=== PATIENT | female | born 1975 | race Caucasian/White ===

== ENCOUNTER 2017-04-23 16:35 | Inpatient (IN) | payer OTHER ==
[2017-04-23 16:43] VITALS: BMI 24.0
[2017-04-23] MEDS ORDERED: HYDROmorphone HCL CARPU-JECT 1 MG/1 ML DISP.SYRIN IVPB ONE (17:04)
[2017-04-23] MEDS ORDERED: HYDROmorphone HCL CARPU-JECT 1 MG/1 ML DISP.SYRIN ONE ×2 (17:10→23:10)
[2017-04-23 17:23] LABS: BASOPHIL 0.5 % (0-2.0); EOSINOPHIL 0.7 % (0-4.5); MCH 29.8 pg (25.7-33.7); MCHC 33.5 g/dl (32.0-36.0); MEAN CELL VOLUME 89.2 fl (80-96); MEAN PLT VOLUME 9.5 fl (7.5-11.1); NEUTROPHILS 79.2 % (42.8-82.8); PLATELET COUNT 206 K/MM3 (134-434); RDW 13.8 % (11.6-15.6); WHITE BLOOD COUNT 11.1 K/mm3 (4.0-10.0)
[2017-04-23] MEDS ORDERED: MIDAZOLAM HCL 5 MG/1 ML Single Dose Vial IVPUSH ONE (17:44)
[2017-04-23 18:10] LABS: ALBUMIN 3.6 g/dl (3.4-5.0); ALK PHOS 54 U/L (45-117); ANION GAP 12 (8-16); BILIRUBIN,TOTAL 1.6 mg/dL (0.2-1.0); CALCIUM 8.7 mg/dL (8.5-10.1); CO2 23 mmol/L (21-32); COCKROFT - GAULT 93.1515; CREATININE 0.7 mg/dL (0.55-1.02); GLUCOSE,RANDOM 107 mg/dL (74-106); SGOT/AST 121 U/L (15-37); SGPT/ALT 170 U/L (12-78); TOT PROT 6.5 g/dl (6.4-8.2)
--- NOTE | 2017-04-23 18:30 | PDOC ---
History of Present Illness - History of Present Illness Initial Comments: 04/23/17 18:30 Patient is a 41 year old female with significant medical hx of cholecystitis who is presenting to the ED after discharge from [facility] for continuing symptoms of cholecystitis. Patient has been having symptoms for four days with severe RUQ pain that radiates around to her upper back. She reports multiple episodes of nausea and vomiting since onset of her pain but denies any fever or chills. The patient also endorses an itchy rash to her neck that started after she was given a medication at [facility] today. Patient cannot remember the name of the medication given, however she notes that she received an US and was given medications for her vomiting and pain. The patient was not discharged on any medications. Denies fever, chills, chest pain, shortness of breath, headache, or weakness. <Devi Seay - Last Filed: 04/23/17 19:09> <Ewa Purcell - Last Filed: 04/23/17 23:28> - General Chief Complaint: Pain Stated Complaint: ABD PAIN Time Seen by Provider: 04/23/17 16:48 Past History <Devi Seay - Last Filed: 04/23/17 19:09> - Past Medical History Other medical history: GALL BLADDER - Psycho/Social/Smoking Cessation Hx Anxiety: No Suicidal Ideation: No Smoking History: Never smoked Hx Alcohol Use: No Drug/Substance Use Hx: No Substance Use Type: None <Ewa Purcell - Last Filed: 04/23/17 23:28> - Past Medical History Allergies/Adverse Reactions: Allergies Allergy/AdvReac Type Severity Reaction Status Date / Time No Known Allergies Allergy Verified 04/23/17 16:42 Home Medications: Ambulatory Orders NK [No Known Home Medication] 04/23/17 Review of Systems - Review of Systems Comments:: 04/23/17 18:32 CONSTITUTIONAL: Absent: fever, chills, diaphoresis, generalized weakness, malaise, loss of appetite HEENT: Absent: rhinorrhea, nasal congestion, throat pain, throat swelling, difficulty swallowing, mouth swelling, ear pain, eye pain, visual changes CARDIOVASCULAR: Absent: chest pain, syncope, palpitations, irregular heart rate, lightheadedness , peripheral edema RESPIRATORY: Absent: cough, shortness of breath, dyspnea with exertion, orthopnea, wheezing, stridor, hemoptysis GASTROINTESTINAL: Present: abdominal pain, nausea, vomiting Absent: abdominal distension, diarrhea, constipation, melena, hematochezia GENITOURINARY: Absent: dysuria, frequency, urgency, hesitancy, hematuria, flank pain, genital pain MUSCULOSKELETAL: Absent: myalgia, arthralgia, joint swelling SKIN: Present: rash Absent: itching, pallor HEMATOLOGIC/IMMUNOLOGIC: Absent: easy bleeding, easy bruising, lymphadenopathy, frequent infections ENDOCRINE: Absent: unexplained weight gain, unexplained weight loss, heat intolerance, cold intolerance NEUROLOGIC: Absent: headache, focal weakness or paresthesia, dizziness, unsteady gait, seizure, mental status changes, bladder or bowel incontinence. PSYCHIATRIC: Absent: anxiety, depression, suicidal or homicidal ideation, hallucinations <Devi Seay - Last Filed: 04/23/17 19:09> *Physical Exam - Vital Signs Last Vital Signs Temp Pulse Resp BP Pulse Ox 98.0 F 75 18 152/92 100 04/23/17 16:38 04/23/17 16:38 04/23/17 16:38 04/23/17 16:38 04/23/17 16:38 - Physical Exam Comments: 04/23/17 18:35GENERAL: Well developed, well nourished. Awake and alert. Moderate distress. HEENT: Normocephalic, atraumatic. PERRLA, EOMI. No conjunctival pallor. Sclera are non- icteric. Moist mucous membranes. Oropharynx is clear. NECK: Supple. Full ROM. No JVD. Carotid pulses 2+ and symmetric, without bruits. No thyromegaly. No lymphadenopathy. CARDIOVASCULAR: Regular rate and rhythm. No murmurs, rubs, or gallops. Distal pulses are 2+ and symmetric. PULMONARY: No evidence of respiratory distress. Lungs clear to auscultation bilaterally. No wheezing, rales or rhonchi. ABDOMINAL: Soft. RUQ tenderness. Non-distended. No rebound or guarding. No organomegaly. Normoactive bowel sounds. MUSCULOSKELETAL: Upper back tenderness. Normal range of motion at all joints. No bony deformities. EXTREMITIES: No cyanosis. No clubbing. No edema. No calf tenderness. SKIN: Itchy rash upper neck. Warm and dry. Normal capillary refill. No jaundice. NEUROLOGICAL: Alert, awake, appropriate. Cranial nerves 2-12 intact. Normal speech. Toes are down-going bilaterally. Gait is normal without ataxia. PSYCHIATRIC: Cooperative. Good eye contact. Appropriate mood and affect. <Devi Seay - Last Filed: 04/23/17 19:09> - Vital Signs Last Vital Signs Temp Pulse Resp BP Pulse Ox 98.0 F 75 18 152/92 100 04/23/17 16:38 04/23/17 16:38 04/23/17 16:38 04/23/17 16:38 04/23/17 16:38 <Ewa Purcell - Last Filed: 04/23/17 23:28> ED Treatment Course - LABORATORY CBC & Chemistry Diagram: 04/23/17 17:15 04/23/17 17:27 - ADDITIONAL ORDERS Additional order review: Laboratory Results 04/23/17 17:27 Sodium 142 Potassium 3.4 L Chloride 107 Carbon Dioxide 23 Anion Gap 12 BUN 5 L Creatinine 0.7 Creat Clearance w eGFR > 60 Random Glucose 107 H Calcium 8.7 Total Bilirubin 1.6 H AST 121 H ALT 170 H Alkaline Phosphatase 54 Total Protein 6.5 Albumin 3.6 Lipase 77 04/23/17 17:15 RBC 4.43 MCV 89.2 MCHC 33.5 RDW 13.8 MPV 9.5 Neutrophils % 79.2 Lymphocytes % 12.9 Monocytes % 6.7 Eosinophils % 0.7 Basophils % 0.5 - RADIOLOGY Radiograph Interpretation: 04/23/17 19:10 Chief Operator Hydroformer: ([email or web address]) Report Date: 04/23/2017 17:55:00 Report Status: Preliminary Begin of Report Content Referring Physician: Ewa Purcell Patient Name: Kimberly Connelly THIS IS A PRELIMINARY REPORT FROM IMAGING ENVIRONMENTAL SERVICES MANAGER EXAM: Ultrasound abdomen right upper quadrant IMAGES: 56 EXAM DATE AND TIME: 2017-04-23 17:55:39.0 REASON FOR EXAM: Rule out cholecystitis COMPARISON: None. FINDINGS: Distended gallbladder measuring 13.9 cm in length containing multiple small shadowing stones and sludge. The gallbladder wall is normal in thickness measuring 1.6 mm. There is no pericholecystic fluid. Presence or absence of a sonographic Roque's sign was not reported The common bile duct is upper limits of normal measuring 6 mm The liver is upper limits of normal size with normal contour and echogenicity. No intrahepatic biliary dilatation. No hepatic masses. The portal and hepatic veins are patent The pancreas, right kidney and visualized portions of the abdominal aorta and IVC are unremarkable THIS DOCUMENT HAS BEEN ELECTRONICALLY SIGNED Danis Farnsworth MD 04/23/2017 19:05 JOANNA Barone Please call Imaging Waterproof Material Folder [phone] ([phone] with questions. ===== End of Report Content - Medications Given in the ED: ED Medications Discontinued Medications Generic Name Dose Route Start Last Admin Trade Name Freq PRN Reason Stop Dose Admin Diphenhydramine HCl 25 mg 04/23/17 17:03 04/23/17 17:22 Benadryl Injection - IVPUSH 04/23/17 17:04 25 mg ONCE ONE Administration Hydromorphone HCl 0.5 mg 04/23/17 17:04 04/23/17 17:22 Dilaudid Injection - IVPB 04/23/17 17:05 0.5 mg ONCE ONE Administration <Devi Seay - Last Filed: 04/23/17 19:09> - LABORATORY CBC & Chemistry Diagram: 04/23/17 17:15 04/23/17 17:27 - ADDITIONAL ORDERS Additional order review: Laboratory Results 04/23/17 17:27 Sodium 142 Potassium 3.4 L Chloride 107 Carbon Dioxide 23 Anion Gap 12 BUN 5 L Creatinine 0.7 Creat Clearance w eGFR > 60 Random Glucose 107 H Calcium 8.7 Total Bilirubin 1.6 H AST 121 H ALT 170 H Alkaline Phosphatase 54 Total Protein 6.5 Albumin 3.6 Lipase 77 04/23/17 17:15 RBC 4.43 MCV 89.2 MCHC 33.5 RDW 13.8 MPV 9.5 Neutrophils % 79.2 Lymphocytes % 12.9 Monocytes % 6.7 Eosinophils % 0.7 Basophils % 0.5 - RADIOLOGY Radiology Studies Ordered: Category Date Time Status ABDOMEN US -LIMITED [US] Stat Ultrasound 04/23/17 17:17 Taken - Medications Given in the ED: ED Medications Discontinued Medications Generic Name Dose Route Start Last Admin Trade Name Gonzalez PRN Reason Stop Dose Admin Diphenhydramine HCl 25 mg 04/23/17 17:03 04/23/17 17:22 Benadryl Injection - IVPUSH 04/23/17 17:04 25 mg ONCE ONE Administration Hydromorphone HCl 0.5 mg 04/23/17 17:04 04/23/17 17:22 Dilaudid Injection - IVPB 04/23/17 17:05 0.5 mg ONCE ONE Administration <Ewa Purcell - Last Filed: 04/23/17 23:28> Medical Decision Making - Medical Decision Making 04/23/17 23:21 41 yo female with recent dischare from [facility] for cholecystitis -discharged with no medications -pt has intractible pain -labs showed elevated Tbili and LFT -US revealed multiple gallstones and sludge pt given antiemetics,IVF,antibiotics and pain meds. . Pt states this is her 4th episode and she is interested in having her GB removed IMP cholecystitis <Ewa Purcell - Last Filed: 04/23/17 23:28> *DC/Admit/Observation/Transfer - Attestations Scribe Attestion: 04/23/17 18:33 Documentation prepared by Devi Seay, acting as medical management specialist for Ewa Purcell MD. <Devi Seay - Last Filed: 04/23/17 19:09> - Discharge Dispostion Admit: Yes <Ewa Purcell - Last Filed: 04/23/17 23:28> Diagnosis at time of Disposition: Cholecystitis, Elevated liver enzymes - Referrals
[2017-04-23] MEDS ORDERED: POTASSIUM CHLORIDE TABS 20 MEQ TABLET.ER (FP) PO ONE (18:41)
[2017-04-23] MEDS ORDERED: POTASSIUM CHLORIDE TABS 10 MEQ TABLET.ER (FP) ONE (18:55)
[2017-04-23 19:13] LABS: URINE APPEARANCE CLEAR; URINE BILIRUBIN NEGATIVE (NEGATIVE); URINE BLOOD NEGATIVE (NEGATIVE); URINE COLOR YELLOW; URINE GLUCOSE (UA) NEGATIVE (NEGATIVE); URINE KETONE 1+ (NEGATIVE); URINE LEUK ESTERASE NEGATIVE (NEGATIVE); URINE NITRITE NEGATIVE (NEGATIVE); URINE PROTEIN NEGATIVE (NEGATIVE); URINE UROBILINOGEN 2.0 E.U/dl E.U./dl (0.2-1.0)
[2017-04-23] MEDS ORDERED: AMPICILLIN NA/SULBACTAM NA 1.5 GM in SODIUM CHLORIDE 100 ML IVPB ONE (21:17)
[2017-04-23] MEDS ORDERED: AMPICILLIN SODIUM 250 MG VIAL ONE (21:37)
[2017-04-23] MEDS ORDERED: AMPICILLIN SODIUM 1 GM VIAL ONE (21:37)
--- NOTE | 2017-04-23 21:47 | PN ---
<Yesenia Cervantes - Last Filed: 04/23/17 21:46> Teaching Attending Note Name of Resident: Harish Hearn ATTENDING PHYSICIAN STATEMENT I saw and evaluated the patient. I reviewed the resident's note and discussed the case with the resident. I agree with the resident's findings and plan as documented. SUBJECTIVE: OBJECTIVE: ASSESSMENT AND PLAN: <Nader Malave - Last Filed: 04/24/17 02:19> Teaching Attending Note ATTENDING PHYSICIAN STATEMENT I saw and evaluated the patient. I reviewed the resident's note and discussed the case with the resident. I agree with the resident's findings and plan as documented. SUBJECTIVE: The patient is a 41 year old female with a significant past medical history of cholecystitis, who presented with abdominal pain patient was recently discharged today from [facility] for acute cholecystitis states she was admitted there for 4 days for same symptoms and noted she received ultrasound but denied gallbladder being taken out. No fevers or chills. Reported one episode of vomiting earlier today. OBJECTIVE: Last Vital Signs 3 Temp Pulse Resp BP Pulse Ox 98 F 68 18 102/68 100 04/23/17 19:23 04/23/17 19:23 04/23/17 19:23 04/23/17 19:23 04/23/17 19:23 Physical Exam: GEN: NAD HEENT: NCAT, PERRL CARD: RRR, S1 S2 RESP: CTAB ABD: (+) Positive murphys sign. BWS x4 EXT: - CCE SKIN: (+) Red plain papular rash on neck. Labs: CBCD 3 WBC 11.1 K/mm3 (4.0-10.0) H 04/23/17 17:15 RBC 4.43 M/mm3 (3.60-5.2) 04/23/17 17:15 Hgb 13.2 GM/dL (10.7-15.3) 04/23/17 17:15 Hct 39.5 % (32.4-45.2) 04/23/17 17:15 MCV 89.2 fl (80-96) 04/23/17 17:15 MCHC 33.5 g/dl (32.0-36.0) 04/23/17 17:15 RDW 13.8 % (11.6-15.6) 04/23/17 17:15 Plt Count 206 K/MM3 (134-434) 04/23/17 17:15 MPV 9.5 fl (7.5-11.1) 04/23/17 17:15 CMP 3 Sodium 142 mmol/L (136-145) 04/23/17 17:27 Potassium 3.4 mmol/L (3.5-5.1) L 04/23/17 17:27 Chloride 107 mmol/L (98-107) 04/23/17 17:27 Carbon Dioxide 23 mmol/L (21-32) 04/23/17 17:27 Anion Gap 12 (8-16) 04/23/17 17:27 BUN 5 mg/dL (7-18) L 04/23/17 17:27 Creatinine 0.7 mg/dL (0.55-1.02) 04/23/17 17:27 Creat Clearance w eGFR > 60 (>60) 04/23/17 17:27 Calcium 8.7 mg/dL (8.5-10.1) 04/23/17 17:27 Total Bilirubin 1.6 mg/dL (0.2-1.0) H 04/23/17 17:27 AST 121 U/L (15-37) H 04/23/17 17:27 ALT 170 U/L (12-78) H 04/23/17 17:27 Alkaline Phosphatase 54 U/L (45-117) 04/23/17 17:27 Total Protein 6.5 g/dl (6.4-8.2) 04/23/17 17:27 Albumin 3.6 g/dl (3.4-5.0) 04/23/17 17:27 Imaging: EXAM: Ultrasound abdomen right upper quadrant IMAGES: 56 EXAM DATE AND TIME: 2017-04-23 17:55:39.0 REASON FOR EXAM: Rule out cholecystitis COMPARISON: None. FINDINGS: Distended gallbladder measuring 13.9 cm in length containing multiple small shadowing stones and sludge. The gallbladder wall is normal in thickness measuring 1.6 mm. There is no pericholecystic fluid. Presence or absence of a sonographic Roque's sign was not reported The common bile duct is upper limits of normal measuring 6 mm The liver is upper limits of normal size with normal contour and echogenicity. No intrahepatic biliary dilatation. No hepatic masses. The portal and hepatic veins are patent The pancreas, right kidney and visualized portions of the abdominal aorta and IVC are unremarkable THIS DOCUMENT HAS BEEN ELECTRONICALLY SIGNED Danis Farnsworth MD 2016 19:05 EST ASSESSMENT AND PLAN: Patient is a 41 year old female who presents with abdominal pain, found to have acute daphne 1. Acute cholecystitis - Hida Scan done at [facility]. Obtain records - NPO - IVF - Type and screen - Zofran for nausea - Pain control - Cbc and coags - Surgical consult - Continue with Zosyn 2. Hypokalemia - Replete - Check magnesium 3. Rash - most likely contact - Unknown ideology - Contact dermatitis 4. DVT PPX- low risk - Ambulate Admit to med surg. Documentation prepared by Nader Malave, acting as director global medical affairs for Dr. Yesenia Cervantes MD.
--- NOTE | 2017-04-23 22:29 | HP ---
CHIEF COMPLAINT: Abdominal Pain w/Nausea and Vomiting PCP: Dr. Corina Hernadez ([place], [place]) HISTORY OF PRESENT ILLNESS: 41 y/o F w/sig PMH of gastritis (on omeprazole) presents to the ER w/ c/o RUQ abd pain for the last 4 days. Pain is located in RUQ and radiates to back and is worse with food and rated at a 15/10 at its worst. Pain has been constant over last 4 days but is worsened with eating and after eating pt has been having nausea and non-bloody vomiting over the last 4 days after eating. She has not taken any NSAIDs recently. She has had this type of pain 4-5 times in the past but did not seek help and was relieved on its own. Pt was seen at [facility] on Monday and admitted for cholecystitis there and discharged this morning after tolerating liquid diet after receiving zofran. Pt had Ultrasound and HIDA scan there. She states US showed enlarged gallbladder and stones there and HIDA was "normal". She discharged with instructions to f/u with PCP and no surgery f/u. After being discharged this morning she went home and felt severe pain and came to [facility] approximately 1 hour after being discharged. She denies fevers, chills, chest pain, SOB, pain with urination, blood in urine, sick contacts. She does not have HIDA or ultrasound records with her. At [facility] pt developed a rash on her neck after receiving meds but pt cannot pinpoint which medication it was. No trouble with breathing or throat swelling. She states benadryl has been helping. Rash began before dye injection for HIDA. ER course was notable for: (1) Ultrasound, Unasyn (2) Pain control w/dilaudid (3) Versed, Benadryl Recent Travel: denies PAST MEDICAL HISTORY: gastritis, migraines PAST SURGICAL HISTORY: 2 c-sections Social History: Smoking: quit 7 years ago, smoked 1/2 ppd for 5-6 years Alcohol: social Drugs: denies Family History: non-contributory Allergies No Known Allergies Allergy (Verified 04/23/17 16:42) HOME MEDICATIONS: Home Medications Medication Instructions Recorded Omeprazole 04/23/17 REVIEW OF SYSTEMS CONSTITUTIONAL: Absent: fever, chills, diaphoresis HEENT: Absent: throat pain, throat swelling, difficulty swallowing, mouth swelling CARDIOVASCULAR: Absent: chest pain, lightheadedness, peripheral edema RESPIRATORY: Absent: shortness of breath, dyspnea with exertion, orthopnea, wheezing, stridor, hemoptysis GASTROINTESTINAL: +abd pain, nausea, vomiting, Absent: constipation, melena, hematochezia GENITOURINARY: Absent: dysuria, hematuria NEUROLOGIC: Absent: headache, dizziness, mental status changes PSYCHIATRIC: Absent: anxiety, depression, suicidal or homicidal ideation, hallucinations. Vital Signs Temperature 98 F 04/23/17 19:23 Pulse Rate 68 04/23/17 19:23 Respiratory Rate 18 04/23/17 19:23 Blood Pressure 102/68 04/23/17 19:23 O2 Sat by Pulse Oximetry (%) 100 04/23/17 19:23 PHYSICAL EXAMINATION GENERAL: Awake, alert, and fully oriented, in no acute distress. HEAD: Normal with no signs of trauma. EYES: extraocular movements intact, sclera anicteric, conjunctiva clear. No lid lag. EARS, NOSE, THROAT: Ears normal, nares patent, Moist mucous membranes. NECK: Normal range of motion, supple LUNGS: Breath sounds equal, clear to auscultation bilaterally. No wheezes, and no crackles. No accessory muscle use. HEART: Regular rate and rhythm, normal S1 and S2 without murmur, rub or gallop. ABDOMEN: +RUQ tenderness, +Roque's sign, +hyperactive bowel sounds, Soft, not distended, no guarding, no rebound, no masses. MUSCULOSKELETAL: Normal range of motion at all joints. No bony deformities or tenderness. EXTREMITIES: 2+ pulses, warm, well-perfused. No calf tenderness. No peripheral edema. +R CVA tenderness (may be due to RUQ pain) NEUROLOGICAL: Normal speech. gait not observed. PSYCHIATRIC: Cooperative. Good eye contact. Appropriate mood and affect. SKIN: Warm, dry, normal turgor, +Rash on neck CBCD WBC 11.1 K/mm3 (4.0-10.0) H 04/23/17 17:15 RBC 4.43 M/mm3 (3.60-5.2) 04/23/17 17:15 Hgb 13.2 GM/dL (10.7-15.3) 04/23/17 17:15 Hct 39.5 % (32.4-45.2) 04/23/17 17:15 MCV 89.2 fl (80-96) 04/23/17 17:15 MCHC 33.5 g/dl (32.0-36.0) 04/23/17 17:15 RDW 13.8 % (11.6-15.6) 04/23/17 17:15 Plt Count 206 K/MM3 (134-434) 04/23/17 17:15 MPV 9.5 fl (7.5-11.1) 04/23/17 17:15 CMP Sodium 142 mmol/L (136-145) 04/23/17 17:27 Potassium 3.4 mmol/L (3.5-5.1) L 04/23/17 17:27 Chloride 107 mmol/L (98-107) 04/23/17 17:27 Carbon Dioxide 23 mmol/L (21-32) 04/23/17 17:27 Anion Gap 12 (8-16) 04/23/17 17:27 BUN 5 mg/dL (7-18) L 04/23/17 17:27 Creatinine 0.7 mg/dL (0.55-1.02) 04/23/17 17:27 Creat Clearance w eGFR > 60 (>60) 04/23/17 17:27 Random Glucose 107 mg/dL (74-106) H 04/23/17 17:27 Calcium 8.7 mg/dL (8.5-10.1) 04/23/17 17:27 Total Bilirubin 1.6 mg/dL (0.2-1.0) H 04/23/17 17:27 AST 121 U/L (15-37) H 04/23/17 17:27 ALT 170 U/L (12-78) H 04/23/17 17:27 Alkaline Phosphatase 54 U/L (45-117) 04/23/17 17:27 Total Protein 6.5 g/dl (6.4-8.2) 04/23/17 17:27 Albumin 3.6 g/dl (3.4-5.0) 04/23/17 17:27 Urine Test Results Urine Color Yellow 04/23/17 19:00 Urine Appearance Clear 04/23/17 19:00 Urine pH 7.0 (5.0-8.0) 04/23/17 19:00 Ur Specific [place] 1.015 (1.005-1.025) 04/23/17 19:00 Urine Protein Negative (NEGATIVE) 04/23/17 19:00 Urine Glucose (UA) Negative (NEGATIVE) 04/23/17 19:00 Urine Ketones 1+ (NEGATIVE) H 04/23/17 19:00 Urine Blood Negative (NEGATIVE) 04/23/17 19:00 Urine Nitrite Negative (NEGATIVE) 04/23/17 19:00 Urine Bilirubin Negative (NEGATIVE) 04/23/17 19:00 Ur Leukocyte Esterase Negative (NEGATIVE) 04/23/17 19:00 Imaging: Ultrasound RUQ: Patient Name: Kimberly Connelly THIS IS A PRELIMINARY REPORT FROM IMAGING TRAINING COORDINATOR EXAM: Ultrasound abdomen right upper quadrant IMAGES: 56 EXAM DATE AND TIME: 2017-04-23 17:55:39.0 REASON FOR EXAM: Rule out cholecystitis COMPARISON: None. FINDINGS: Distended gallbladder measuring 13.9 cm in length containing multiple small shadowing stones and sludge. The gallbladder wall is normal in thickness measuring 1.6 mm. There is no pericholecystic fluid. Presence or absence of a sonographic Roque's sign was not reported The common bile duct is upper limits of normal measuring 6 mm The liver is upper limits of normal size with normal contour and echogenicity. No intrahepatic biliary dilatation. No hepatic masses. The portal and hepatic veins are patent The pancreas, right kidney and visualized portions of the abdominal aorta and IVC are unremarkable THIS DOCUMENT HAS BEEN ELECTRONICALLY SIGNED Danis Farnsworth MD 04/23/2017 19:05 JOANNA Barone Please call Imaging Thread Puller [phone] ([phone] with questions. ===== End of Report Content CXR: as per my read: No signs of acute pathology, no infiltrates noted, costophrenic angles sharp, no bony abnormalities. Active Medications Sodium Chloride (Normal Saline -) 1,000 mls @ 100 mls/hr IV ASDIR DI Last Admin: 04/23/17 23:19 Dose: 100 mls/hr Morphine Sulfate (Morphine Injection -) 2 mg IVPUSH Q4H PRN PRN Reason: PAIN Ondansetron HCl (Zofran Injection) 4 mg IVPUSH Q6H PRN PRN Reason: NAUSEA AND/OR VOMITING Pantoprazole Sodium (Protonix 40mg Ivpb (Pre-Docked)) 40 mg IVPB DAILY DI ASSESSMENT/PLAN: 41 y/o F w/sig PMH of gastritis presents to ER with c/o RUQ pain w/Nausea and vomiting 1 hour after being discharged from [facility] with cholecystitis. Pt is admitted for acute cholecystitis with cholelithiasis and possible choledocholithiasis. -Acute cholecystitis with cholelithiasis and possible choledocholithiasis -Ultrasound shows distended gallbladder @ 13.9 cm in length, stones, and sludge. CBD is upper limit of normal at 6 mm. F/u official read. -Will need to get HIDA scan records from [facility] (pt had HIDA scan there on Monday, April 22) -NPO, IVF - NS @ 100 ml/hr -Zosyn ordered (pt given unasyn in ER); ID consulted (Dr. Saxena) -Zofran 4mg q6h PRN for nausea -Pain control with morphine 2 mg IV q4h PRN -Surgery consult (Dr. Rivers) -f/u LFTs, CBC, type and screen -AST/ALT elevated; Alk phos to be tracked as well for choledocholithiasis -Rash -Contact dermatitis vs medication allergy -likely contact dermatitis due to distrubution around neck only -Monitor rash especially with new medication administration -Gastritis -Protonix 40 mg IV qd -DVT ppx -low risk; Ambulation -FEN -NS @ 100 ml/hr -Hypokalemia - repleted, monitor -NPO -Dispo: -Admit to med/surg Problem List - Problem (1) Cholecystitis Code(s): K81.9 - CHOLECYSTITIS, UNSPECIFIED (2) Elevated liver enzymes Code(s): R74.8 - ABNORMAL LEVELS OF OTHER SERUM ENZYMES (3) Gastritis Code(s): K29.70 - GASTRITIS, UNSPECIFIED, WITHOUT BLEEDING (4) Cholelithiasis Code(s): K80.20 - CALCULUS OF GALLBLADDER W/O CHOLECYSTITIS W/O OBSTRUCTION Visit type - Emergency Visit Emergency Visit: Yes ED Registration Date: 04/23/17 Care time: The patient presented to the Emergency Department on the above date and was hospitalized for further evaluation of their emergent condition. - New Patient This patient is new to me today: Yes Date on this admission: 04/24/17 - Critical Care Critical Care patient: No
[2017-04-23] MEDS ORDERED: PIPERACILLIN/TAZOB 3.375 GM/50 ML PRE-DOCKED IVPB ONE ×2 (23:14→23:30)
[2017-04-23] MEDS ORDERED: ONDANSETRON 4 MG/2 ML VIAL IVPUSH PRN (23:15)
[2017-04-23] MEDS: SODIUM CHLORIDE 1,000 ML IV SCH (23:19)
[2017-04-24 07:20] LABS: BASOPHIL 0.7 % (0-2.0); EOSINOPHIL 3.4 % (0-4.5); MCH 30.9 pg (25.7-33.7); MCHC 34.8 g/dl (32.0-36.0); MEAN CELL VOLUME 88.9 fl (80-96); MEAN PLT VOLUME 9.3 fl (7.5-11.1); PLATELET COUNT 154 K/MM3 (134-434); RDW 13.7 % (11.6-15.6)
[2017-04-24 07:25] LABS: ALK PHOS 49 U/L (45-117); ANION GAP 9 (8-16); BILIRUBIN,TOTAL 1.2 mg/dL (0.2-1.0); CALCIUM 7.9 mg/dL (8.5-10.1); CO2 25 mmol/L (21-32); COCKROFT - GAULT 108.6725; CREATININE 0.6 mg/dL (0.55-1.02); GLUCOSE,RANDOM 79 mg/dL (74-106); SGOT/AST 91 U/L (15-37); SGPT/ALT 156 U/L (12-78); TOT PROT 5.6 g/dl (6.4-8.2)
--- NOTE | 2017-04-24 08:58 | PN ---
Progress Note (short form) - Note Progress Note: ID consult dictated imp/reccd acute cholycystitis versus biliary colic +gallstones this is 5th episode of RUQ abdominal pain with nausea and vomiting in the last one year no fevers or chills admitted early Monday am to [facility] treated with analgesics and antibiotics, discharged on Monday am, developed recurrent abdominal pain RUQ with nausea and vomiting and came to [facility] ED ultrasound here with stones and sludge received unasyn and zosyn called [facility]- spoke with Dr Portillo (resident)- hida was negative there, felt to have biliary colic and discharged he will fax us the results would resume rocephin while awaiting surgical evaluation and Hida scan results Problem List - Problems (1) Cholecystitis Code(s): K81.9 - CHOLECYSTITIS, UNSPECIFIED (2) Recurrent biliary colic Code(s): K80.50 - CALCULUS OF BILE DUCT W/O CHOLANGITIS OR CHOLECYST W/O OBST
[2017-04-24] MEDS: PANTOPRAZOLE SODIUM 40 MG/100 ML PRE-DOCKED IVPB SCH (09:04)
[2017-04-24] MEDS: SODIUM CHLORIDE 1,000 ML IV SCH ×2 (09:12→23:58)
[2017-04-24] MEDS ORDERED: cefTRIAXone 1 GM/50 ML BAG (PRE-DOCKED) IVPB SCH (10:00)
[2017-04-24] MEDS ORDERED: PANTOPRAZOLE SODIUM 40 MG in SODIUM CHLORIDE 100 ML IVPB SCH (10:00)
--- NOTE | 2017-04-24 10:34 | CONS ---
DATE OF CONSULTATION: REQUESTING PHYSICIAN: Hospitalist service HISTORY: This is a 41-year-old woman who presents to the emergency room with her 5th episode of right upper quadrant pain over the course of the last year. She originally had an episode of severe right upper quadrant pain accompanied by nausea and vomiting on night. Monday morning she went to [facility] where she was admitted. She was apparently while there started on clears. On Monday, she was tolerating clears. On Monday, she had both a sonogram and a HIDA scan, and she was discharged home off medications. She reports though that she had a rash on her neck, which resolved with Benadryl. She went home on Monday, and she developed again severe right upper quadrant pain, and she came to the emergency room. She denies fever or chills. She has nausea and vomiting. She had an ultrasound performed in the emergency room that showed gallstones and sludge. She was given Dilaudid, Benadryl, and Versed. She was given Unasyn in the emergency room and follow up Zosyn as an outpatient. I am asked to see her for antibiotics. She has no recent travel. PAST MEDICAL HISTORY: Notable for gastritis and migraines. She has been HIV tested in the past and is HIV negative. As well denies any history of hepatitis. PAST SURGICAL HISTORY: She has had 2 sections. FAMILY HISTORY: Unremarkable. ALLERGIES: She has no known drug allergies. MEDICATIONS: She is not taking any medicines. SOCIAL HISTORY: She drinks alcohol socially. She stopped smoking 7 years ago. She denies any drug use. She was born in [place] but was living in [place] until 5 years ago. She has 5 children ranging in ages from 21-10, and she is at home. She is currently not working. She has been back in this country for 5 years from [place]. REVIEW OF SYSTEMS: She reports her pain is improved. She has no nausea or vomiting this morning. She has no diarrhea. She has no shortness of breath or chest pain. PHYSICAL EXAMINATION: Vital Signs: Her T-max is 99.1, currently temperature 98.2, pulse 66, blood pressure 112/66, respiratory rate 18. She is saturating 97%. HEENT: She is normocephalic. Her eyes are anicteric. Neck: Supple. Lungs: Clear to auscultation. Heart: Regular rate and rhythm. Abdomen: Soft. There is no distention. She has bowel sounds and mild right upper quadrant pain. Extremities: Without edema. She has multiple tattoos on her arms. LABORATORY DATA: Her labs are notable on admission white count 11.1, this morning 6, hemoglobin is 11.4, BUN 5, creatinine 0.6, total bilirubin 1.6 on admission and this morning 1.2. Urinalysis is negative. HCG is negative. Sonogram results as previously stated shows gallbladder sludge and stones. Chest x-ray is negative. In summary, this is a 41-year-old woman with acute cholecystitis versus recurrent biliary colic. She has known gallstones. This is her 5th episode in the last 1 year. I spoke with Dr. Saxena , who is the resident taking care of her at [facility] who reports her HIDA scan was negative, and she was felt by Surgery there to have biliary colic at discharge. He will fax us the results. I gave him our fax number. I would resume Rocephin at this time as her LFTs are abnormal and her white count was elevated on admission. Further recommendations to follow awaiting surgical evaluation and official HIDA scan results. PROBLEM LIST: Includes cholecystitis versus biliary colic. BELLO CASTANON M.D. [id number]
[2017-04-24] MEDS ORDERED: KCL 10 MEQ IVPB 100 ML IVPB ONE (11:15)
--- NOTE | 2017-04-24 11:41 | MSN ---
Progress Note (short form) - Note Progress Note: Subjective: Patient is a 41 year old female with past medical history of gastritis that is complaining of upper right quadrant pain that started on as a "20/10" pain that caused the patient to be admitted to [facility]. The patient was discharged on Monday with the ability to tolerate a liquid diet. After discharge the patient began having recurrence of upper right quadrant pain that again was rated as a "20/10." The patient came to [facility] ED because of the persistence of her pain. The patient describes her pain as constant and radiating to the back. The patient stated that previously she felt nausea and vomiting, which made her pain symptoms worse. Nothing the patient has attempted will make her pain better. Today the patient feels improved, with her pain symptoms being described as a 3/10. The patient has had upper right quadrant pain before on 4 occasions but has never sought out medical attention. The patient also complains of a rash on her anterior neck that started on while at [facility]. The patients describes the rash a being "itchy". The patient receive Benadryl for the rash with minor improvement. The patient does not smoke and drinks up to three drinks of alcohol on the weekends. The patients past surgical history is only significant for two previous c-sections. The patients denies and fever, chills, nauseas, vomiting, diarrhea, dizziness or weakness at this time. Vital Signs Period Temp Pulse Resp BP Sys/Brito Pulse Ox Last 24 Hr 98 F-99.1 F 60-75 17-20 102-152/62-92 97-100 Exam General: alert and oriented in no acute distress Heart: Regular Rate and Rhythm with normal S1 and S2 Lungs: Clear to auscultation bilaterally and in all lung lu Extremities: 5/5 muscle strength and 2/4 pulses in all extremities. No swelling or edema. Abdomen: no guarding or distention, tenderness in the upper and lower right quadrants to light and deep palpation and Roque sign is positive. Normoactive bowel sounds on auscultation. Laboratory Results - last 24 hr 04/23/17 04/23/17 04/23/17 17:15 17:27 19:00 WBC 11.1 H RBC 4.43 Hgb 13.2 Hct 39.5 MCV 89.2 MCHC 33.5 RDW 13.8 Plt Count 206 MPV 9.5 Neutrophils % 79.2 Lymphocytes % 12.9 Monocytes % 6.7 Eosinophils % 0.7 Basophils % 0.5 Sodium 142 Potassium 3.4 L Chloride 107 Carbon Dioxide 23 Anion Gap 12 BUN 5 L Creatinine 0.7 Creat Clearance w eGFR > 60 Random Glucose 107 H Calcium 8.7 Total Bilirubin 1.6 H AST 121 H ALT 170 H Alkaline Phosphatase 54 Total Protein 6.5 Albumin 3.6 Lipase 77 Urine Color Yellow Urine Appearance Clear Urine pH 7.0 Ur Specific [place] 1.015 Urine Protein Negative Urine Glucose (UA) Negative Urine Ketones 1+ H Urine Blood Negative Urine Nitrite Negative Urine Bilirubin Negative Urine Urobilinogen 2.0 e.u/dl H Ur Leukocyte Esterase Negative Urine HCG, Qual 04/23/17 04/24/17 04/24/17 19:09 06:20 06:20 WBC 6.0 D RBC 3.68 Hgb 11.4 D Hct 32.7 D MCV 88.9 MCHC 34.8 RDW 13.7 Plt Count 154 D MPV 9.3 Neutrophils % 60.0 D Lymphocytes % 26.9 D Monocytes % 9.0 Eosinophils % 3.4 D Basophils % 0.7 Sodium 143 Potassium 3.6 Chloride 109 H Carbon Dioxide 25 Anion Gap 9 BUN 5 L Creatinine 0.6 Creat Clearance w eGFR > 60 Random Glucose 79 D Calcium 7.9 L Total Bilirubin 1.2 H D AST 91 H D ALT 156 H Alkaline Phosphatase 49 Total Protein 5.6 L Albumin 3.0 L Lipase Urine Color Urine Appearance Urine pH Ur Specific [place] Urine Protein Urine Glucose (UA) Urine Ketones Urine Blood Urine Nitrite Urine Bilirubin Urine Urobilinogen Ur Leukocyte Esterase Urine HCG, Qual Negative Current Medications Generic Name Dose Route Start Last Admin Trade Name Freq PRN Reason Stop Dose Admin Ceftriaxone Sodium 1 gm 04/24/17 10:00 04/24/17 10:25 Rocephin 1gm Ivpb (Pre-Docked) IVPB 1 gm DAILY DI Administration Protocol Sodium Chloride 1,000 mls @ 100 mls/hr 04/23/17 22:45 04/24/17 09:12 Normal Saline - IV 100 mls/hr ASDIR DI Administration Potassium Chloride 100 mls @ 100 mls/hr 04/24/17 11:15 Potassium Chloride 10 Meq Premix Ivpb - IVPB 04/24/17 12:14 Q60M DI Morphine Sulfate 2 mg 04/23/17 23:37 Morphine Injection - IVPUSH Q4H PRN PAIN Ondansetron HCl 4 mg 04/23/17 23:15 Zofran Injection IVPUSH Q6H PRN NAUSEA AND/OR VOMITING Pantoprazole Sodium 40 mg 04/24/17 10:00 04/24/17 09:04 Protonix 40mg Ivpb (Pre-Docked) IVPB 40 mg DAILY DI Administration Imagin04/23/17 (Chest X-ray)- negative for any evidence of pulmonary disease 04/23/17 (Abdominal Ultrasound)- Showed distended gallbladder 13.9cm in length with multiple stones and presence of sludge. Assessment and Plan: Patient is a 41 year old female with past medical history of gastritis that presented to the ER with upper right quadrant pain, nauseas and vomiting after discharge from [facility]. Patient has been admitted for choleycystitis and choledocolithiasis. Acute cholecystitis with choledocholithiasis- -NPO - IV normal saline @ 100ml/hr - ceftriaxone 1 gm IVPB daily (day 1) - recieved zosyn 3.375 gm IVPD - zophran 4mg q6hrs PRN for nausea - morphine 2mg IV q4 for pain - continue monitoring LFT's and CBC - likely surgery to remove stones Neck Rash- - Possible contact dermatitis due to distribution - Continue to monitor Gastritis- Protonix 40mg IV qd DVT prophylaxis- Low risk patient ambulation F/E/N- -NS @ 100 ml/hr -NPO
--- NOTE | 2017-04-24 11:43 | EKG ---
Test Reason : Blood Pressure : / mmHG Vent. Rate : 063 BPM Atrial Rate : 063 BPM P-R Int : 120 ms QRS Dur : 084 ms QT Int : 434 ms P-R-T Axes : 072 057 067 degrees QTc Int : 444 ms NORMAL SINUS RHYTHM NORMAL ECG NO PREVIOUS ECGS AVAILABLE Confirmed by FIGUEROA MOLINA MD ([id number]) on 04/24/2017 11:42:52 AM Referred By: Confirmed By:FIGUEROA MOLINA MD
[2017-04-24] MEDS: morphine CARPU-JECT 2 MG/1 ML DISP.SYRIN IVPUSH PRN ×2 (12:43→18:25)
--- NOTE | 2017-04-24 14:01 | PN ---
Teaching Attending Note Name of Resident: Estella Isidro ATTENDING PHYSICIAN STATEMENT I saw and evaluated the patient. I reviewed the resident's note and discussed the case with the resident. I agree with the resident's findings and plan as documented. SUBJECTIVE:continues to have RUQ pain. this is her 4th attack. did not seek medical care during the previous episodes and they self resolved. developed a rash around her neck mildly pruritic during hospital stay at [place]. as per her improved. did receive abx there (does not recall name) but does not recall when or how it developed but it has not spread. denies CP, SOB,fever, chills, N/ V/C/D, new lotions/creams/soaps OBJECTIVE: Last Vital Signs Temp Pulse Resp BP Pulse Ox 98.2 F 66 18 112/66 97 04/24/17 08:04 04/24/17 08:04 04/24/17 08:04 04/24/17 08:04 04/24/17 00:33 General NAD CV S1 S2 RRR no murmur/rub/gallop Lungs CTA B/L no wheezing/rales/rhonchi Abdomen soft +RUQ tenderness +Roque sign skin macular coalescing rash on R clavicle spreading up the neck. no LN not tender ASSESSMENT AND PLAN: 41 yo F with PMH gastritis presented to the ER with RUQ pain 1. Acute cholecystitis-with possible choledocholithasis. report from [facility] HIDA scan negative. u/s with multiple gallstones and sludge. elevated LFT. check MRCP. Zosyn switched to Ceftriaxone. ID and surgery on board. pain and nausea control 2. macular rash- possible drug reaction. obtain full reports from [facility]. benadryl prn 3. Hypokalemia- Kcl 10meq 4. DVT ppx- start lovenox.
--- NOTE | 2017-04-24 14:40 | CONSULT ---
Consult Consult Specialty:: Surgery Reason for Consultation:: Acute cholecystitis - History of Present Illness Chief Complaint: RUQ abdominal pain History of Present Illness: 41 y/o F w/sig PMH of gastritis (on omeprazole) presents to the ER w/ c/o RUQ abd pain for the last 4 days. Pain is located in RUQ and radiates to back and is worse with food and rated at a 15/10 at its worst. Pain has been constant over last 4 days but is worsened with eating and after eating pt has been having nausea and non-bloody vomiting over the last 4 days after eating. She has not taken any NSAIDs recently. She has had this type of pain 4-5 times in the past but did not seek help and was relieved on its own. Pt was seen at [facility] on Monday and admitted for cholecystitis there and discharged this morning after tolerating liquid diet after receiving zofran. Pt had Ultrasound and HIDA scan there. She states US showed enlarged gallbladder and stones there and HIDA was "normal". She discharged with instructions to f/u with PCP and no surgery f/u. After being discharged this morning she went home and felt severe pain and came to [facility] approximately 1 hour after being discharged. She denies fevers, chills, chest pain, SOB, pain with urination, blood in urine, sick contacts. Currently with less abdominal pain. - History Source History Provided By: Patient Limitations to Obtaining History: No Limitations - Past Medical History Gastrointestinal: Yes: Gastritis Hepatobiliary: Yes: Cholelithiasis ...LMP Comment: 03/29/17 - Alcohol/Substance Use Hx Alcohol Use: No - Smoking History Smoking history: Never smoked Have you smoked in the past 12 months: No Home Medications - Allergies Allergies/Adverse Reactions: Allergies Allergy/AdvReac Type Severity Reaction Status Date / Time No Known Allergies Allergy Verified 04/23/17 16:42 - Home Medications Home Medications: Ambulatory Orders Omeprazole 1 PO DAILY 04/24/17 Review of Systems - Review of Systems Constitutional: reports: No Symptoms Eyes: reports: No Symptoms HENT: reports: No Symptoms Respiratory: reports: No Symptoms Genitourinary: reports: Pain (RUQ radiating to the back) Physical Exam Vital Signs: Vital Signs Temperature 98.2 F 04/24/17 08:04 Pulse Rate 66 04/24/17 08:04 Respiratory Rate 18 04/24/17 08:04 Blood Pressure 112/66 04/24/17 08:04 O2 Sat by Pulse Oximetry (%) 99 04/24/17 09:00 Constitutional: Yes: Well Nourished, No Distress Eyes: Yes: Conjunctiva Clear HENT: Yes: Normocephalic Neck: Yes: Supple Cardiovascular: Yes: Regular Rate and Rhythm Respiratory: Yes: CTA Bilaterally Gastrointestinal: Yes: Soft, Tenderness (mild deep RUQ tenderness) Labs: CBC, BMP 04/24/17 06:20 04/24/17 06:20 Imaging - Results Chest X-ray: Image Reviewed Ultrasound: Report Reviewed, Image Reviewed EKG: Report Reviewed, Image Reviewed Problem List - Problems (1) Cholecystitis Code(s): K81.9 - CHOLECYSTITIS, UNSPECIFIED (2) Cholelithiasis Code(s): K80.20 - CALCULUS OF GALLBLADDER W/O CHOLECYSTITIS W/O OBSTRUCTION (3) Elevated liver enzymes Code(s): R74.8 - ABNORMAL LEVELS OF OTHER SERUM ENZYMES (4) Recurrent biliary colic Code(s): K80.50 - CALCULUS OF BILE DUCT W/O CHOLANGITIS OR CHOLECYST W/O OBST Assessment/Plan Acute cholecystitis with cholelithiasis and possible intermittent passage of stones into the CBD and small bowel resulting to abnormal LFT's F/U MRCP advised cholecystectomy during this hospital stay, planned for tomorrow pending MRCP findings If MRCP shows choledocholithiasis, will require ERCP and stone extraction Continue IVF, IV abx,
--- NOTE | 2017-04-24 16:19 | PN ---
Physical Exam: SUBJECTIVE: Patient seen and examined by me at bedside. Patient continues to have pain in her RUQ but states it has improved. Patient states she had multiple attacks in the past but all resolved. Patient also complains of an itchy rash and new onset. Otherwise, patient denies fever, chills, nausea, vomiting, chest pain, palpitations, shortness of breath. Patient denies any change in her diet. OBJECTIVE: Vital Signs Period Temp Pulse Resp BP Sys/Brito Pulse Ox Last 24 Hr 97.8 F-99.1 F 60-76 17-20 103-113/62-73 97-99 GENERAL: The patient is awake, alert, and fully oriented, in no acute distress. LUNGS: Breath sounds equal, clear to auscultation bilaterally, no wheezes, no crackles, no accessory muscle use. HEART: Regular rate and rhythm, S1, S2 without murmur, rub or gallop. ABDOMEN: Tenderness upon palpation of RUQ with (+) stevenson's sign. Nondistended, normoactive bowel sounds. No hepatosplenomegaly. No rebound or guarding. EXTREMITIES: No peripheral edema. SKIN: macular rash spreading from the right clavicle up to the neck right below the right mandibular region Laboratory Results - last 24 hr 04/24/17 04/24/17 06:20 06:20 WBC 6.0 D RBC 3.68 Hgb 11.4 D Hct 32.7 D MCV 88.9 MCHC 34.8 RDW 13.7 Plt Count 154 D MPV 9.3 Neutrophils % 60.0 D Lymphocytes % 26.9 D Monocytes % 9.0 Eosinophils % 3.4 D Basophils % 0.7 Sodium 143 Potassium 3.6 Chloride 109 H Carbon Dioxide 25 Anion Gap 9 BUN 5 L Creatinine 0.6 Creat Clearance w eGFR > 60 Random Glucose 79 D Calcium 7.9 L Total Bilirubin 1.2 H D AST 91 H D ALT 156 H Alkaline Phosphatase 49 Total Protein 5.6 L Albumin 3.0 L Active Medications Generic Name Dose Route Start Last Admin Trade Name Freq PRN Reason Stop Dose Admin Ceftriaxone Sodium 1 gm 04/24/17 10:00 04/24/17 10:25 Rocephin 1gm Ivpb (Pre-Docked) IVPB 1 gm DAILY DI Administration Protocol Sodium Chloride 1,000 mls @ 100 mls/hr 04/23/17 22:45 04/24/17 09:12 Normal Saline - IV 100 mls/hr ASDIR DI Administration Morphine Sulfate 2 mg 04/23/17 23:37 04/24/17 12:43 Morphine Injection - IVPUSH 2 mg Q4H PRN Administration PAIN Ondansetron HCl 4 mg 04/23/17 23:15 Zofran Injection IVPUSH Q6H PRN NAUSEA AND/OR VOMITING Pantoprazole Sodium 40 mg 04/24/17 10:00 04/24/17 09:04 Protonix 40mg Ivpb (Pre-Docked) IVPB 40 mg DAILY DI Administration ASSESSMENT/PLAN: Patient is a 41 year old male with a PMHx of gastritis who presented for RUQ pain and tenderness associated with nausea and vomiting. Patient came to [place] after being discharged from [facility] for similar symptoms and was diagnosed with Cholecystitis. Patient on U/S was found to have Acute Cholecystitis with cholelithiasis and admitted for further monitoring and management. Acute cholecystitis with cholelithiasis and possible choledocholithiasis -U/S revealed distended Gallbladder with gallstones and sludge. -Elevated LFT's, will continue to monitor -HIDA Scan record from [facility] revealed no evidence of cystic duct obstruction -Will continue IV NS @100mls/hr -Ceftriaxone 1gm daily ordered -Pain control with Morphine 2mg IV Q4H PRN -Surgery consult placed -MRCP ordered and if it shows choledocholithiasis, will order ERCP for stone removal Macular Rash -Secondary to contact dermatitis vs. medication allergy -Localized to the neck only -Called [facility] twice to fax ED course and treatment for a list of all medications given -Will continue to monitor the rash. Gastritis -Continue Protonix 40 mg IV qd FEN -NS @100 mls/hr -Hypokalemia - repleted, monitor -NPO Prophylaxis -low risk. SCD's for DVT -Protonix for GI Disposition -MRCP pending. If MRCP negative will proceed with surgery tomorrow. Visit type - Emergency Visit Emergency Visit: Yes ED Registration Date: 04/23/17 Care time: The patient presented to the Emergency Department on the above date and was hospitalized for further evaluation of their emergent condition. - New Patient This patient is new to me today: Yes Date on this admission: 04/24/17 - Critical Care Critical Care patient: No
[2017-04-24] MEDS ORDERED: diphenhydrAMINE HCL 25 MG CAPSULE (FP) PO ONE (18:38)
--- NOTE | 2017-04-24 23:18 | HOSP ---
Subjective - Review of Symptoms Events since last encounter: Pt reports worsening of rash and feeling anxiety due to stress from home. Pt's rash around neck is worsened compared to yesterday with area of rash now extended to L chest wall. Skin is warm to touch with no open lesions seen. Will give pt IV benadryl 25 mg once. Physical Examination Vital Signs: Vital Signs Temperature 99.2 F 04/24/17 18:00 Pulse Rate 81 04/24/17 18:00 Respiratory Rate 20 04/24/17 18:00 Blood Pressure 114/71 04/24/17 18:00 O2 Sat by Pulse Oximetry (%) 99 04/24/17 09:00 Labs: CBC, BMP 04/24/17 06:20 04/24/17 06:20 Visit type - Emergency Visit Emergency Visit: Yes ED Registration Date: 04/23/17 Care time: The patient presented to the Emergency Department on the above date and was hospitalized for further evaluation of their emergent condition. - New Patient This patient is new to me today: No - Critical Care Critical Care patient: No
[2017-04-25 07:08] LABS: MCH 30.8 pg (25.7-33.7); MCHC 34.4 g/dl (32.0-36.0); MEAN CELL VOLUME 89.7 fl (80-96); MEAN PLT VOLUME 9.1 fl (7.5-11.1); PLATELET COUNT 174 K/MM3 (134-434); RDW 13.8 % (11.6-15.6); WHITE BLOOD COUNT 8.1 K/mm3 (4.0-10.0)
[2017-04-25 07:23] LABS: INR 1.12 (0.82-1.09); PROTHROMBIN TIME (PATIENT) 12.3 SEC (9.98-11.88)
[2017-04-25 07:25] LABS: ACTIVATED PTT 28.7 SECONDS (26.9-34.4)
[2017-04-25 07:38] LABS: ANION GAP 14 (8-16); CALCIUM 8.1 mg/dL (8.5-10.1); CO2 18 mmol/L (21-32); GLUCOSE,RANDOM 54 mg/dL (74-106)
--- NOTE | 2017-04-25 07:40 | PN ---
Physical Exam: SUBJECTIVE: Patient seen and examined by me at bedside. Overnight events noted for worsening skin rash. Patient reports the rash is still itchy but not as severe as last night. Patient also reports the abdominal pain improving but still has some mild tenderness. Otherwise, patient denies fever, chills, nausea , vomiting, shortness of breath, chest pain. OBJECTIVE: Vital Signs Period Temp Pulse Resp BP Sys/Brito Pulse Ox Last 24 Hr 97.6 F-99.2 F 66-84 16-20 110-115/62-71 99 GENERAL: The patient is awake, alert, and fully oriented, in no acute distress. LUNGS: Breath sounds equal, clear to auscultation bilaterally, no wheezes, no crackles, no accessory muscle use. HEART: Regular rate and rhythm, S1, S2 without murmur, rub or gallop. ABDOMEN: Tenderness upon palpation of RUQ with (+) stevenson's sign. Nondistended, normoactive bowel sounds. EXTREMITIES: No peripheral edema. SKIN: macular rash spreading from the right clavicle up to the neck right below the right mandibular region Laboratory Results - last 24 hr 04/25/17 04/25/17 06:05 06:05 WBC 8.1 D RBC 3.96 Hgb 12.2 Hct 35.5 MCV 89.7 MCHC 34.4 RDW 13.8 Plt Count 174 MPV 9.1 INR 1.12 PTT (Actin FS) 28.7 Active Medications Generic Name Dose Route Start Last Admin Trade Name Freq PRN Reason Stop Dose Admin Ceftriaxone Sodium 1 gm 04/24/17 10:00 04/24/17 10:25 Rocephin 1gm Ivpb (Pre-Docked) IVPB 1 gm DAILY DI Administration Protocol Sodium Chloride 1,000 mls @ 100 mls/hr 04/23/17 22:45 04/24/17 23:58 Normal Saline - IV 100 mls/hr ASDIR DI Administration Morphine Sulfate 2 mg 04/23/17 23:37 04/24/17 18:25 Morphine Injection - IVPUSH 2 mg Q4H PRN Administration PAIN Ondansetron HCl 4 mg 04/23/17 23:15 Zofran Injection IVPUSH Q6H PRN NAUSEA AND/OR VOMITING Pantoprazole Sodium 40 mg 04/24/17 10:00 04/24/17 09:04 Protonix 40mg Ivpb (Pre-Docked) IVPB 40 mg DAILY DI Administration ASSESSMENT/PLAN: Patient is a 41 year old male with a PMHx of gastritis who presented for RUQ pain and tenderness associated with nausea and vomiting. Patient came to [place] after being discharged from [facility] for similar symptoms and was diagnosed with Cholecystitis. Patient on U/S was found to have Acute Cholecystitis with cholelithiasis and admitted for further monitoring and management. Acute cholecystitis with cholelithiasis -U/S revealed distended Gallbladder with gallstones and sludge. -Abdominal MRI reevaled no Choledocholithiasis but did show recent stone passage -LFT's trending down -HIDA Scan record from [facility] revealed no evidence of cystic duct obstruction -Will continue IV NS @100mls/hr -Ceftriaxone discontinued to possible drug allergy -Flagyl 500mg Q8H and Levofloxacin 500mg daily ordered -Pain control with Morphine 2mg IV Q4H PRN -Surgery at 1700 today -Surgery consult appreciated Macular Rash -Secondary to contact dermatitis vs. medication allergy -Now on the neck and chest -Will continue Benadryl 25mg PRN -Switched Ceftriaxone to Levofloxacin and Flagyl incase of medication allergy -Called [facility] twice to fax ED course and treatment for a list of all medications given -Will continue to monitor the rash. Gastritis -Continue Protonix 40 mg IV qd FEN -NS @100 mls/hr -Electrolytes wnl -NPO Prophylaxis -low risk. SCD's for DVT -Protonix for GI Disposition -Surgery this evening and will monitor overnight Visit type - Emergency Visit Emergency Visit: Yes ED Registration Date: 04/23/17 Care time: The patient presented to the Emergency Department on the above date and was hospitalized for further evaluation of their emergent condition. - New Patient This patient is new to me today: No - Critical Care Critical Care patient: No
[2017-04-25 07:44] LABS: ALBUMIN 3.2 g/dl (3.4-5.0); ALK PHOS 54 U/L (45-117); BILIRUBIN,TOTAL 0.8 mg/dL (0.2-1.0); CREATININE 0.4 mg/dL (0.55-1.02); SGOT/AST 35 U/L (15-37); SGPT/ALT 119 U/L (12-78); TOT PROT 5.8 g/dl (6.4-8.2)
[2017-04-25] MEDS: PANTOPRAZOLE SODIUM 40 MG/100 ML PRE-DOCKED IVPB SCH (09:40)
[2017-04-25] MEDS ORDERED: LEVOFLOXACIN 500 MG IVPB 100 ML IVPB SCH (10:00)
[2017-04-25] MEDS: METRONIDAZOLE 500 MG PREMIXED 100 ML IVPB SCH ×2 (12:09→17:10)
[2017-04-25] MEDS: SODIUM CHLORIDE 1,000 ML IV SCH (12:10)
--- NOTE | 2017-04-25 12:23 | MSN ---
Progress Note (short form) - Note Progress Note: Subjective: Patient was seen at the bedside. Patient stated that her pain level has increased moderately today to a 5/10 from a 3/10 in her upper right quadrant. The pain is still described at constant pain that radiates to the back but not to the shoulder. Patient also stated that she felt very anxious last night and believes that she was having a panic attack. she stated feeling light headed and dizzy during the attack. Patient states that she has a history of panic attack that resolve on their own. Patient denies any anxiety at this moment. The Patient also complains of increased redness and itching in the macular rash located on her anterior neck. The rash has spread from down from above the cervical to include the middle sternum. These increased symptoms started last night in which she was given Benadryl with slight improvement of her symptoms. The patient states that she has not defecated but denies any constipation. The patient also denies any fever, chills, nausea, vomiting, chest pain, or SOB. Vital Signs Period Temp Pulse Resp BP Sys/Brito Pulse Ox Last 24 Hr 97.6 F-99.2 F 76-84 16-20 110-115/62-71 Exam- General- Alert and oriented in no acute distress Heart- Regular rate and rhythm with normal S1 and S2 Lungs- clear to auscultation bilaterally in all lung lu Extremities- 5/5 muscle strength and 2/4 pulses in all extremities. No edema or swelling. Abdomen- no guarding or distention. Patient has tenderness to light and deep palpation in the upper right quadrant and a positive Roque sign. Normoactive bowels sounds were auscultated. Laboratory Results - last 24 hr 04/25/17 04/25/17 04/25/17 06:05 06:05 06:05 WBC 8.1 D RBC 3.96 Hgb 12.2 Hct 35.5 MCV 89.7 MCHC 34.4 RDW 13.8 Plt Count 174 MPV 9.1 INR 1.12 PTT (Actin FS) 28.7 Sodium 140 Potassium 3.8 Chloride 108 H Carbon Dioxide 18 L D Anion Gap 14 BUN 9 D Creatinine 0.4 L D Creat Clearance w eGFR > 60 Random Glucose 54 L D Calcium 8.1 L Total Bilirubin 0.8 D AST 35 D ALT 119 H D Alkaline Phosphatase 54 Total Protein 5.8 L Albumin 3.2 L Current Medications Generic Name Dose Route Start Last Admin Trade Name Freq PRN Reason Stop Dose Admin Sodium Chloride 1,000 mls @ 100 mls/hr 04/23/17 22:45 04/25/17 12:10 Normal Saline - IV 100 mls/hr ASDIR DI Administration Levofloxacin 100 mls @ 100 mls/hr 04/25/17 10:00 Levaquin 500 Mg Premixed Ivpb - IVPB DAILY DI Metronidazole 100 mls @ 100 mls/hr 04/25/17 10:00 04/25/17 12:09 Flagyl 500mg Premixed Ivpb - IVPB 100 mls/hr Q8H-IV DI Administration Morphine Sulfate 2 mg 04/23/17 23:37 04/24/17 18:25 Morphine Injection - IVPUSH 2 mg Q4H PRN Administration PAIN Pantoprazole Sodium 40 mg 04/24/17 10:00 04/25/17 09:40 Protonix 40mg Ivpb (Pre-Docked) IVPB 40 mg DAILY DI Administration Imaging- 04/23/17 (Chest X-ray)- negative for any evidence of pulmonary disease 04/23/17 (Abdominal Ultrasound)- Showed distended gallbladder 13.9cm in length with multiple stones and presence of sludge. 04/24/17 (HIDA scan)- No evidence of stone in the cystic duct 04/24/17 (MRCP)- completed, awaiting interpretation Assessment and Plan: Patient is a 41 year old female with past medical history of gastritis that presented to the ER with upper right quadrant pain, nauseas and vomiting after discharge from [facility]. Patient has been admitted for choleycystitis and cholelithiasis. Acute cholecystitis with cholelithiasis- -NPO - IV normal saline @ 100ml/hr - levofloxacin 500 mg, 100mls @100mls/hr IVPB daily - Metronidazole 500mg 100mls @ 100mls/hr IV daily - received ceftriaxone 1 gm IVPB daily (day 1) - recieved zosyn 3.375 gm IVPD - zophran 4mg q6hrs PRN for nausea - morphine 2mg IV q4 for pain - continue monitoring LFT's and CBC - cholecystectomy planned, awaiting results of MRCP, if stone present in the bile duct ERCP will be performed to remove the stone. Neck Rash- - rash has spread to sternum - Benadryl administered IV, moderate improvement - awaiting list of previous medications from [facility] - Continue to monitor Gastritis- Protonix 40mg IV qd DVT prophylaxis- Low risk patient ambulation F/E/N- -NS @ 100 ml/hr -NPO
[2017-04-25] MEDS: morphine CARPU-JECT 2 MG/1 ML DISP.SYRIN IVPUSH PRN (13:28)
--- NOTE | 2017-04-25 13:29 | PN ---
Progress Note (short form) - Note Progress Note: worsening rash on her neck- has never had it before- diffuse erythema still with RUQ pain Vital Signs Period Temp Pulse Resp BP Sys/Brito Pulse Ox Last 24 Hr 97.6 F-99.2 F 76-84 16-20 110-120/57-71 cor-rrr lungs clear abd soft,mild ruq discomfort to palpation ext no edema CBC, BMP 04/25/17 06:05 04/25/17 06:05 a/p acute cholycystitis versus biliary colic +gallstones rash -worsening f/u MRI f/u surgery ?drug rash- switch to levaquin/flagyl Problem List - Problems (1) Cholecystitis Code(s): K81.9 - CHOLECYSTITIS, UNSPECIFIED (2) Recurrent biliary colic Code(s): K80.50 - CALCULUS OF BILE DUCT W/O CHOLANGITIS OR CHOLECYST W/O OBST
--- NOTE | 2017-04-25 15:35 | PN ---
Teaching Attending Note Name of Resident: Estella Isidro ATTENDING PHYSICIAN STATEMENT I saw and evaluated the patient. I reviewed the resident's note and discussed the case with the resident. I agree with the resident's findings and plan as documented. SUBJECTIVE: Patient complains of abdominal pain. She has itchy rash on her neck and upper chest. OBJECTIVE: Vital Signs Period Temp Pulse Resp BP Sys/Brito Pulse Ox Last 24 Hr 97.6 F-99.2 F 76-84 16-20 114-120/57-71 HEART: S1S2, RRR LUNGS: Clear ABDOMEN: Soft, non-distended, (+) RUQ tenderness, normal BS EXTREMITIES: No edema SKIN: Erythematous macular rash on anterior and both sides of neck and over upper chest ASSESSMENT AND PLAN: This is a 41 year old woman with a history of gastritis who presented to the ER with RUQ abdominal pain. 1. Acute cholecystitis - HIDA was negative at [facility] - MRCP shows hydropic gallbladder with stones and sludge, cholecystitis, intra- and extra-hepatic ductal dilatation, distal CBD thickening with surrounding edema, no choledocholithiasis - On Levaquin, Flagyl - Plan for lap daphne today 2. Possible drug reaction - Patient reports rash started after receiving antibiotics at [facility] on 04/22 - Rocephin discontinued - Continue Benadryl as needed - Obtain records from [facility] to determine which antibiotics were given 3. Hypokalemia - Improved
[2017-04-25] MEDS ORDERED: INDOCYANINE GREEN 25 MG/10 ML VIAL IVPUSH ONE (18:20)
[2017-04-25] MEDS ORDERED: BUPIVACAINE HCL/PF 0.5% (5MG/ML) 10 ML VIAL ONE (18:20)
[2017-04-25] MEDS ORDERED: ePHEDrine SULFATE 50 MG/1 ML AMPULE ONE (19:37)
[2017-04-25] MEDS ORDERED: KETOROLAC TROMETHAMINE 30 MG/1 ML VIAL ONE (19:45)
[2017-04-25] MEDS ORDERED: DEXAMETHASONE SOD PHOSPHATE 4 MG/1 ML VIAL ONE (19:45)
[2017-04-25] MEDS ORDERED: NEOSTIGMINE METHYLSULFATE 0.5 MG/ML - 10 ML MDV ONE (19:45)
[2017-04-25] MEDS ORDERED: GLYCOPYRROLATE 0.2 MG/1 ML VIAL ONE (19:48)
[2017-04-25] MEDS ORDERED: oxyCODONE HCL 5 MG TABLET PO PRN ×2 (20:03→20:10)
[2017-04-25] MEDS ORDERED: ONDANSETRON 4 MG/2 ML VIAL IVPUSH PRN (20:03)
[2017-04-25] MEDS ORDERED: PROMETHAZINE HCL 25 MG/1 ML VIAL IVPUSH PRN (20:03)
[2017-04-25] MEDS ORDERED: ACETAMINOPHEN 325 MG TABLET (FP) PO PRN (20:10)
--- NOTE | 2017-04-25 20:13 | OP ---
Operative Note - Note: Operative Date: 04/25/17 Pre-Operative Diagnosis: acute cholecystitis, cholelithiasis Operation: robotic-assisted laparoscopic cholecystectomy Post-Operative Diagnosis: Same as Pre-op Surgeon: Miguel Angel Rivers Dealer Sales Manager: Lyndsey Chamorro Anesthesiologist/FORM MAKER: Veto Castorena Anesthesia: General Specimens Removed: gallbladder Estimated Blood Loss (mls): 10 Fluid Volume Replaced (mls): 1,100 Operative Report Dictated: Yes
--- NOTE | 2017-04-25 20:15 | SURG ---
Surgery Singing Telegram Performer Note Singing Telegram Performer: Lyndsey Chamorro PA-C Date of Service: 04/25/17 Diagnosis: acute cholecystitis, cholelithiasis Procedure: robotic-assisted laparoscopic cholecystectomy I was present for the entirety of the operative procedure. For further detail, please refer to operative report. Visit type - Case Type Case Type: ED Admission - New patient This patient is new to me today: Yes Date on this admission: 04/25/17
[2017-04-25] MEDS ORDERED: SODIUM CHLORIDE 1,000 ML IV SCH (20:18)
[2017-04-25] MEDS ORDERED: morphine CARPU-JECT 2 MG/1 ML DISP.SYRIN IVPUSH PRN (20:18)
[2017-04-26] MEDS: METRONIDAZOLE 500 MG PREMIXED 100 ML IVPB SCH ×2 (01:40→10:35)
[2017-04-26 07:32] LABS: ALBUMIN 3.1 g/dl (3.4-5.0); ANION GAP 11 (8-16); CALCIUM 8.5 mg/dL (8.5-10.1); CO2 20 mmol/L (21-32); GLUCOSE,RANDOM 88 mg/dL (74-106)
[2017-04-26 07:37] LABS: ALK PHOS 66 U/L (45-117); BILIRUBIN,TOTAL 2.9 mg/dL (0.2-1.0); CREATININE 0.5 mg/dL (0.55-1.02); SGOT/AST 40 U/L (15-37); SGPT/ALT 101 U/L (12-78); TOT PROT 5.8 g/dl (6.4-8.2)
--- NOTE | 2017-04-26 09:31 | PN ---
Progress Note (short form) - Note Progress Note: rash improved s/p lap choly feels well no alcala tolerating clears Vital Signs Period Temp Pulse Resp BP Sys/Brito Pulse Ox Last 24 Hr 97.9 F-98.8 F 62-118 10-18 91-118/52-80 98-100 cor-rrr lungs clear abd soft,nt ext no edema CBC, BMP 04/25/17 06:05 04/26/17 06:20 a/p doing well, s/p lap choly doing well rash -improved d/c antibiotics if okay with surgery please call back if needed Problem List - Problems (1) Cholecystitis Code(s): K81.9 - CHOLECYSTITIS, UNSPECIFIED (2) Recurrent biliary colic Code(s): K80.50 - CALCULUS OF BILE DUCT W/O CHOLANGITIS OR CHOLECYST W/O OBST
--- NOTE | 2017-04-26 09:36 | PN ---
Progress Note (short form) - Note Progress Note: POD #1 Alert. Doing well. Resting in position of comfort. States she had 1 episode of n /v last night but has since resolved. She has been out of bed and ambulating unassisted. Tolerating PO clears. C/o mild incisional tenderness. Pain control via PRN meds. Denies CP or SOB. Last Vital Signs Temp Pulse Resp BP Pulse Ox 98.3 F 62 18 98/62 100 04/26/17 08:58 04/26/17 08:58 04/26/17 08:58 04/26/17 08:58 04/25/17 21:41 BMP 04/26/17 06:20 PE Gen: alert. NAD. Pulm: CTA b/l anteriorly COR: RRR ABD: all surgical ports intact. No hematoma LE: soft. NT b/l Problem List - Problems (1) S/P cholecystectomy Assessment/Plan: POD #1 Stop IV fluid. Advance diet to regular Stop IV ABX Once tolerates regular diet, she can be discharged home from a surgical standpoint Code(s): Z90.49 - ACQUIRED ABSENCE OF OTHER SPECIFIED PARTS OF DIGESTIVE TRACT
[2017-04-26] MEDS ORDERED: PANTOPRAZOLE SODIUM 40 MG/100 ML PRE-DOCKED IVPB SCH (10:00)
[2017-04-26] MEDS ORDERED: LEVOFLOXACIN 500 MG IVPB 100 ML IVPB SCH (10:00)
--- NOTE | 2017-04-26 10:49 | PN ---
Progress Note (short form) - Note Progress Note: ANESTHESIA POD#1 S/P Robotic Lap Cholecystectomy under [facility] VSS NO N/V Pain is under control. No complications seen. Hetal Wilhelm MD.
--- NOTE | 2017-04-26 13:08 | MSN ---
Progress Note (short form) - Note Progress Note: Subjective: Patient was seen at bedside. The patient stated that she was feeling better than previously. She stated that she had some post surgical pain but states that the upper right quadrant pain she was having prior to the surgery has subsided. The patient has been tolerating her liquid diet without incidence. The patient has not been able to have a bowel movement but states that she is passing gas regularly. The patient also states that her rash is no longer itching, and erythema has decreased. When asked about previous anxiety the patent stated feeling relaxed and less anxious at the present moment. Patient denies any fever, chills, nausea, vomiting, diarrhea, chest pain or SOB. Vital Signs Period Temp Pulse Resp BP Sys/Brito Pulse Ox Last 24 Hr 97.9 F-98.8 F 62-118 10-18 91-118/52-80 98-100 Exam: General: Patient is alert and oriented and in no acute distress. Heart: Regular rate and rhythm with normal S1 and S2. Lungs: Clear to auscultation bilaterally in all lung lu. Extremities: 5/5 muscle strength and 2/4 pulse in all extremities with no swelling or edema. Abdomen: 3 small incisions are present. Surgical site is non erythematous, with no signs of infection, bleeding, or incision tear. Laboratory Results - last 24 hr 04/25/17 04/25/17 04/26/17 12:15 12:32 06:20 Sodium 139 Potassium 4.5 Chloride 108 H Carbon Dioxide 20 L Anion Gap 11 BUN 5 L D Creatinine 0.5 L D Creat Clearance w eGFR > 60 Random Glucose 88 D Calcium 8.5 Total Bilirubin 2.9 H D AST 40 H ALT 101 H Alkaline Phosphatase 66 D Total Protein 5.8 L Albumin 3.1 L Blood Type O NEGATIVE O NEGATIVE Antibody Screen Negative Current Medications Generic Name Dose Route Start Last Admin Trade Name Freq PRN Reason Stop Dose Admin Acetaminophen 650 mg 04/25/17 20:10 04/26/17 00:09 Tylenol - PO 650 mg Q4H PRN Administration FEVER OR PAIN Diphenhydramine HCl 12.5 mg 04/25/17 20:18 04/25/17 21:37 Benadryl Injection - IVPUSH 12.5 mg Q4H PRN Administration FOR ITCHING Metronidazole 100 mls @ 100 mls/hr 04/26/17 02:00 04/26/17 10:35 Flagyl 500mg Premixed Ivpb - IVPB 100 mls/hr Q8H-IV DI Administration Levofloxacin 100 mls @ 100 mls/hr 04/26/17 10:00 04/26/17 09:12 Levaquin 500 Mg Premixed Ivpb - IVPB 100 mls/hr DAILY DI Administration Morphine Sulfate 2 mg 04/25/17 20:18 04/26/17 02:35 Morphine Injection - IVPUSH 2 mg Q4H PRN Administration PAIN Oxycodone HCl 5 mg 04/25/17 20:03 04/26/17 00:09 Roxicodone - PO 04/26/17 20:02 5 mg Q4H PRN Administration MILD PAIN Oxycodone HCl 5 mg 04/25/17 20:10 Roxicodone - PO Q4H PRN PAIN Pantoprazole Sodium 40 mg 04/26/17 10:00 04/26/17 11:35 Protonix 40mg Ivpb (Pre-Docked) IVPB 40 mg DAILY DI Administration Imagin04/23/17 (Chest X-ray)- negative for any evidence of pulmonary disease 04/23/17 (Abdominal Ultrasound)- Showed distended gallbladder 13.9cm in length with multiple stones and presence of sludge. 04/24/17 (HIDA scan)- No evidence of stone in the cystic duct 04/24/17 (MRCP)- No evidence of stone present in the common bile duct. No indication for ERCP Assessment and Plan: Patient is a 41 year old female with past medical history of gastritis that presented to the ER with upper right quadrant pain, nauseas and vomiting after discharge from [facility]. Patient has been admitted for choleycystitis and cholelithiasis. Acute cholecystitis with cholelithiasis- - Status post op - Diet changed to solid diet with plans to discharge if tolerated - Plan to discontinue IV normal saline @ 100ml/hr - Plan to discontinue levofloxacin 500 mg, 100mls @100mls/hr IVPB daily (day 2) - Plan to discontinue Metronidazole 500mg 100mls @ 100mls/hr IV daily (day 2) - Discontinued zophran 4mg q6hrs PRN for nausea - received ceftriaxone 1 gm IVPB daily (day 1) - recieved zosyn 3.375 gm IVPD - continue morphine 2mg IV q4 for pain - continue Oxycodone 5mg PO q4hr PRN for pain - continue Acetaminophen 650 mg PO q4hr PRN - continue monitoring LFT's and CBC Neck Rash- (Improved) - Continue Benadryl 12.5mg IV PUSH q4hr PRN - awaiting list of previous medications from [facility] - Continue to monitor Gastritis- - Continue Protonix 40mg IV qd DVT prophylaxis- Low risk patient ambulation F/E/N- - Solid diet
--- NOTE | 2017-04-26 13:11 | PN ---
Teaching Attending Note Name of Resident: Estella Isidro ATTENDING PHYSICIAN STATEMENT I saw and evaluated the patient. I reviewed the resident's note and discussed the case with the resident. I agree with the resident's findings and plan as documented. SUBJECTIVE: OBJECTIVE: Vital Signs Period Temp Pulse Resp BP Sys/Brito Pulse Ox Last 24 Hr 97.9 F-98.8 F 62-118 10-18 91-118/52-80 98-100 HEART: S1S2, RRR LUNGS: Clear ABDOMEN: Soft, non-distended, (+) RUQ tenderness, normal BS EXTREMITIES: No edema SKIN: Macular rash on anterior and both sides of neck and over upper chest is less erythematous ASSESSMENT AND PLAN: This is a 41 year old woman with a history of gastritis who presented to the ER with RUQ abdominal pain. 1. Acute cholecystitis - s/p lap daphne 04/25 2. Possible drug reaction - Patient reports rash started after receiving antibiotics at [facility] on 04/22 - patient was treated there with Cipro - Continue Benadryl as needed 3. Hypokalemia - Improved 4. Ok for discharge home today
--- NOTE | 2017-04-26 13:26 | DS ---
Physical Exam: SUBJECTIVE: Patient seen and examined by me at bedside. POD #1 S/P Laproscopic cholecystectomy. No overnight events noted. Patient reports having abdominal pain from the incision sites. Patient is having normal bowel movements and flatulence. Otherwise, patient denies fever, chills, nausea, vomiting, chest pain, palpitations, shortness of breath OBJECTIVE: Vital Signs Period Temp Pulse Resp BP Sys/Brito Pulse Ox Last 24 Hr 97.9 F-98.8 F 62-118 10-18 91-118/52-80 98-100 PHYSICAL EXAM GENERAL: The patient is awake, alert, and fully oriented, in no acute distress. LUNGS: Breath sounds equal, clear to auscultation bilaterally, no wheezes, no crackles, no accessory muscle use. HEART: Regular rate and rhythm, S1, S2 without murmur, rub or gallop. ABDOMEN: Tenderness in midabdomen at the incision sites with surgical bandages c /d/i EXTREMITIES: No peripheral edema. SKIN: macular rash of the neck LABS Laboratory Results - last 24 hr 04/25/17 04/25/17 04/26/17 12:15 12:32 06:20 Sodium 139 Potassium 4.5 Chloride 108 H Carbon Dioxide 20 L Anion Gap 11 BUN 5 L D Creatinine 0.5 L D Creat Clearance w eGFR > 60 Random Glucose 88 D Calcium 8.5 Total Bilirubin 2.9 H D AST 40 H ALT 101 H Alkaline Phosphatase 66 D Total Protein 5.8 L Albumin 3.1 L Blood Type O NEGATIVE O NEGATIVE Antibody Screen Negative HOSPITAL COURSE: Patient is a 41 year old male with a PMHx of gastritis who presented for RUQ pain and tenderness associated with nausea and vomiting. Patient came to [place] after being discharged from [facility] for similar symptoms and was diagnosed with Cholecystitis. Patient on U/S was found to have Acute Cholecystitis with cholelithiasis and was admitted for surgery. Patient was placed on IV Antibiotics and on NPO. A rash was noticed on her neck and was possibly due to drug reaction vs. contact dermatitis. Medication list was retrieved from [facility] and patient was given Ciprofloxacin. Patient here was also given Ceftriaxone and Levaquin. Explained to patient that this might be a drug reaction. Patient last night was sent to surgery for cholecystectomy and tolerated procedure well with no complications. Patient tolerated Solids without nausea or vomiting, Fluids and antibiotics were discontinued, and patient was ambulating without difficulty. Patient stable for discharge and will be picked up by her . She was advised to follow up with the surgeon within two weeks and her PCP within a week. Date of Admission:04/23/17 Date of Discharge: 04/26/17 Minutes to complete discharge: 35 Discharge Summary Reason For Visit: CHOLECYSTITIS, ELEVATED LIVER ENZYMES Current Active Problems Cholecystitis (Acute) Cholelithiasis (Acute) Elevated liver enzymes (Acute) Gastritis (Acute) Recurrent biliary colic (Acute) S/P cholecystectomy (Acute) Condition: Stable - Instructions Diet, Activity, Other Instructions: Dr Rivers Discharge Instructions Dear Kimberly, Post Operative Instructions Physical activity Resume your normal everyday activity as tolerated no heavy lifting or exercise until seen by your surgeon. You may walk unlimited amounts of and climb stairs. You may resume driving the car when you feel safe and comfortable behind the wheel. Wound care If you have a bandage, leave it on, and keep dry for 48-72 hours. After that time discard the outer bandage. If there are tapes on the skin under the outer bandage, leave them in place. They will peel off in the next 7 to 10 days. Do Not Peel them off. You may shower the day after surgery. If there are tapes present on the skin, you may shower over them. Diet There are no dietary restrictions. Eat healthy, high-fiber foods. Drink 6 to 8 glasses of liquid each day. This will assist in keeping your bowels are regular. Pain management You may take Tylenol or acetaminophen or Ibuprofen (for example, Motrin, Advil etc.) Any pain prescription medication ordered should be taken as prescribed for moderate to severe pain. Call Dr. Rivers for any of the following: Severe pain not relieved by medication Fever of 101 or higher Excessive bleeding or drainage on dressing Inability to urinate Call the office at [phone] for an appointment in seven days. Referrals: Miguel Angel Rivers MD [Staff Physician] - STAFF,NOT ON [Primary Care Provider] - Disposition: HOME - Home Medications Comprehensive Discharge Medication List: Ambulatory Orders Omeprazole 1 PO DAILY 04/24/17 This patient is new to me today: No Emergency Visit: Yes ED Registration Date: 04/23/17 Care time: The patient presented to the Emergency Department on the above date and was hospitalized for further evaluation of their emergent condition. Critical Care patient: No - Discharge Referral Referred to [facility] Med P.C.: No
[2017-04-26 14:29] VITALS: BP 109/58; PULSE 95; TEMP 98.2
--- NOTE | 2017-04-26 15:25 | OP ---
DATE OF OPERATION: April 25, 2017 PROCEDURE: Robotic-assisted laparoscopic cholecystectomy. PREOPERATIVE DIAGNOSIS: Acute cholecystitis. POSTOPERATIVE DIAGNOSIS: Acute cholecystitis. SURGEON: Miguel Angel Rivers MD LEGAL SPECIALIST: ANESTHESIA: General endotracheal. FINDINGS AND PROCEDURE: This is a 41-year-old female history of presented 5 days ago with right upper quadrant pain radiating to the back for which she was admitted to another hospital, was discharged with diagnosis of biliary colic. Upon reaching home, patient had recurrence of the abdominal pain, prompting medical attention in the emergency department. A preoperative ultrasound then revealed a distended gallbladder with multiple stones and mildly common bile duct, with a white blood cell count of 11,000, so patient was admitted with diagnosis of acute cholecystitis and treated with bowel rest, IV fluids, and intravenous antibiotics. Due to the abnormal size of the common duct, an MRCP was done which revealed dilated common bile duct with no choledocholithiasis; however, there was edema in the distal common bile duct and a very distended and hydropic gallbladder continuing multiple stones. Patient was then scheduled for cholecystectomy and consent was obtained after discussing the risks, benefits, and alternatives of the procedure. Patient was brought to the operating room and placed in supine position. General endotracheal anesthesia was administered. The abdomen was prepped and draped in the usual sterile fashion. Using 0.5% Marcaine, local anesthesia was administered to the proposed incision site. The abdominal cavity was entered using the Veress needle technique via an 8-mm umbilical incision. Pneumoperitoneum was established. This was followed by insertion of an 8-mm port and insertion of the 3-D 30-degree laparoscope. The peritoneal cavity was carefully inspected and was noted to be free of inadvertent injury. Two 8-mm ports were inserted to the right of the umbilicus 7 mm away from each other under direct vision. Another 8-mm port was inserted in left upper quadrant 7 mm away from the umbilicus and 1 fingerbreadth above. Patient was then placed in reverse Trendelenburg, left side down position. The target organ was set and the robotic arms were docked. The ProGrasp was inserted through the right lateralmost port. The fenestrated bipolar was inserted at the midclavicular port, and an EndoWrist hook dissector connected to monopolar cautery was inserted at the left upper quadrant port. The undersigned then scrubbed out to commence the console part of the procedure. The gallbladder was noted to be very distended and enlarged and very floppy. The fundus was grasped and retracted superiorly to expose the hepatocystic triangle. The infundibulum contained omental adhesions. This was taken down sharply by the EndoWrist hook dissector. The hepatocystic triangle was identified and the visceral peritoneum covering the area was scored and dissected medially and laterally toward the gallbladder bed. The cystic duct was noted to be widened, and with the help of the Firefly technology, the common bile duct as well as the cystic duct were clearly identified. The cystic artery was also identified and isolated. A window behind the cystic artery was made to create the critical view of safety. The cystic duct was further skeletonized to facilitate proper clipping. Three Hem-o-Kali clips were applied to the cystic duct, followed by transection with the use of the EndoWrist hook dissector, leaving 2 Hep-Lock clips at the cystic duct stump. The cystic artery was clipped at 2 points and cauterized with the bipolar distally and transected. The gallbladder was then resected from its bed in antegrade fashion using the EndoWrist hook dissector. The dissection was facilitated by the edema fluid surrounding the gallbladder wall. After the gallbladder was completely resected, the organ was placed in Endo bag. The perihepatic edema fluid was suctioned until return was clear. The gallbladder was extracted from the left upper quadrant port by initially decompressing it and emptying it of its bile contents. When this was done, the robotic arms were undocked, the pneumoperitoneum was evacuated, and the ports were removed. The wounds were closed with subcuticular Biosyn 4-0 suture reinforced with Dermabond. The umbilical incision was also closed with Biosyn 4-0 subcuticular suture and covered with sterile dressing. Patient was successfully extubated and transferred to the postanesthesia care unit in satisfactory condition. ESTIMATED BLOOD LOSS: About 10 mL. WOUND CLASS: Contaminated. The patient was already on antibiotics prior to the start of the procedure. Lizabeth [id number]
--- NOTE | 2017-04-27 16:14 | PATH ---
Surgical Pathology Report Patient Name: JOSE JARAMILLO Med. Rec. #: [id number] /Age/Gender: 1975 (Age: 41) / F Account: [id number] Location: [address] [place] [address] Taken: 04/25/2017 Received: 04/26/2017 Reported: 04/27/2017 Physicians: Miguel Angel Rivers M.D. Specimen(s) Received GALLBLADDER Clinical History Cholecystitis, elevated liver enzymes Final Diagnosis GALLBLADDER, CHOLECYSTECTOMY: FOCAL ACUTE AND CHRONIC CHOLECYSTITIS, CHOLELITHIASIS. Electronically Signed Eliseo Scott M.D. Gross Description Received in formalin, labeled "gallbladder" is a 9.8 x 3.2 x 1.8 cm gallbladder with a 0.2 cm in length portion of cystic duct attached. The outer surface is mendoza-green and varies from smooth to shaggy. The lumen contains green, tenacious bile as well as numerous brown, irregular choleliths ranging from 0.3-0.6 cm in greatest dimension. The mucosa is dark green and velvety. The wall of the gallbladder averages 0.2 cm in thickness. Jewelry Jobber sections are submitted in one cassette. 04/26/201704/26/2017
== END 2017-04-26 14:57 | disposition home or self-care (01) | DRG 263 ==
LOC: JER 16:35 → JERBED 21:18 → UNDOADMIN 21:44 → J6S 04-24 00:17
PROVIDERS: ADMIT Internal Medicine; ATTEND Internal Medicine
PROC: 8E0W4CZ Robotic Assisted Procedure of Trunk Region, Percutaneous Endoscopic Approach (ICD-10-PCS; 2017-04-25)
PROC: 0FT44ZZ Resection of Gallbladder, Percutaneous Endoscopic Approach (ICD-10-PCS; principal; 2017-04-25 15:00)
DX: K80.00 Calculus of gallbladder with acute cholecystitis without obstruction (principal); K82.1 Hydrops of gallbladder; E87.6 Hypokalemia; L25.1 Unspecified contact dermatitis due to drugs in contact with skin; K29.60 Other gastritis without bleeding; G43.909 Migraine, unspecified, not intractable, without status migrainosus; Z87.891 Personal history of nicotine dependence; T36.8X5A Adverse effect of other systemic antibiotics, initial encounter
CPT/HCPCS: 36415; 71020-TC; 74181-TC; 76705-TC; 80053; 81003; 83690; 84703; 85025; 85027; 85610; 85730; 86850; 86900; 86901; 88304-TC; 93005; 93010; 94760; 99283-25

== ENCOUNTER 2018-04-19 11:12 | Emergency (ER) | payer OTHER ==
[2018-04-19 11:17] VITALS: BP 100/70; PULSE 82; TEMP 98.6; BMI 24.6
--- NOTE | 2018-04-19 13:33 | PDOC ---
History of Present Illness - General Chief Complaint: Pain Stated Complaint: RT FOOT PAIN Time Seen by Provider: 04/19/18 12:50 Past History - Past Medical History Allergies/Adverse Reactions: Allergies Allergy/AdvReac Type Severity Reaction Status Date / Time ampicillin Allergy Verified 04/19/18 11:14 Home Medications: Ambulatory Orders NK [No Known Home Medication] 04/19/18 COPD: No - Surgical History Cholecystectomy: Yes - Suicide/Smoking/Psychosocial Hx Smoking History: Never smoked Have you smoked in the past 12 months: No Information on smoking cessation initiated: No Hx Alcohol Use: No Drug/Substance Use Hx: No Substance Use Type: None Hx Substance Use Treatment: No *Physical Exam - Vital Signs Last Vital Signs Temp Pulse Resp BP Pulse Ox 98.6 F 82 18 100/70 100 04/19/18 11:15 04/19/18 11:15 04/19/18 11:15 04/19/18 11:15 04/19/18 11:15 ED Treatment Course - RADIOLOGY Radiology Studies Ordered: Category Date Time Status FOOT-RIGHT [RAD] Stat Radiology 04/19/18 12:54 Completed *DC/Admit/Observation/Transfer Diagnosis at time of Disposition: Toe pain, right - Discharge Dispostion Disposition: HOME Condition at time of disposition: Stable Decision to Admit order: No - Referrals Referrals: Víctor Florez [Primary Care Provider] - Mark Pruitt MD [Staff Physician] - - Patient Instructions Printed Discharge Instructions: DI for Toe Sprain Additional Instructions: Your x-ray was negative for broken bones Please keep the toes serg taped to help with pain. You may change the tape daily Keep the foot elevated and ice the toe Continue taking your naproxen as needed for pain Follow up with ortho if your symptoms do not improve in the week Return to the ED if you have any new or worsening symptoms - Post Discharge Activity Forms/Work/School Notes: Back to Work
== END 2018-04-19 13:50 | disposition home or self-care (01) ==
LOC: JERFT 11:12
DX: M79.674 Pain in right toe(s) (principal)
CPT/HCPCS: 73630-TC-RT-FY; 99281-25